=== PATIENT | female | born 1995 | race Caucasian/White ===

== ENCOUNTER → 2019-04-18 | Outpatient (REF) ==
--- NOTE | 2019-04-18 10:23 | Diagnostic Imaging Report ---
INDICATION: Fall with pain in the medial aspect of the right knee. TIME OF EXAM: 9:58 AM 3 views right knee were obtained. FINDINGS: Alignment is normal. Joint spaces are well maintained. The articular surfaces are smooth. No fracture, dislocation or effusion is seen. IMPRESSION: No acute bony abnormality is detected. Dictated by: Dictated on workstation # [id number]
== END | disposition home or self-care (01) ==
LOC: OCC 09:45
PROVIDERS: ATTEND Family Medicine
CPT/HCPCS: 73562